=== PATIENT | female | born 1930 | race Caucasian/White ===

== ENCOUNTER 2017-11-14 10:05 | Emergency (ER) | payer OTHER ==
[2017-11-14] MEDS: HYDROCODONE/APAP (5/325) TAB PO (10:57)
[2017-11-14] MEDS: ONDANSETRON (ODT) 4 MG TAB ODT (10:57)
== END 2017-11-14 11:54 | disposition home or self-care (01) ==
LOC: E/R 10:05
DX: M25.562 Pain in left knee (principal); I10 Essential (primary) hypertension; F17.210 Nicotine dependence, cigarettes, uncomplicated
CPT/HCPCS: 73562; 99283-25